=== PATIENT | female | born 1955 | race Caucasian/White ===

== ENCOUNTER → 2020-07-17 10:58 | Outpatient (CLI) | payer OTHER, SELFPAY ==
--- NOTE | ~2020-07-17 | DEXA_ITS ---
Bone Density Report Name: Kirsten Chong Age: 65 Sex: Female Ethnicity: White Date of : 1955 Indication: postmenopausal; screening for osteoporosis; Referring Provider: Mare Lindsay Study: Bone densitometry was performed. Exam Date: July 17, 2020 Accession number: [id number] Bone Density: Region BMD T-score Z-score Classification AP Spine (L1-L4) 0.960 -0.8 1.0 Normal Femoral Neck (Left) 0.646 -1.8 -0.3 Osteopenia Total Hip (Left) 1.019 0.6 1.9 Normal Femoral Neck (Right) 0.626 -2.0 -0.5 Osteopenia Total Hip (Right) 0.949 0.1 1.3 Normal Total Hip Mean 0.984 0.4 1.6 Normal World Health Organization criteria for BMD impression classify patients as: Normal (T-score at or above -1.0), Osteopenia (T-score between -1.0 and -2.5), or Osteoporosis (T-score at or below -2.5). 10-year Fracture Risk(1): Major Osteoporotic Fracture 10% Hip Fracture 1.5% Reported Risk Factors: [place] (), Neck BMD=0.626, BMI=27.5 (1) FRAX(R) Version 3.08. Fracture probability calculated for an untreated patient. Fracture probability may be lower if the patient has received treatment. Previous Exams: Region Exam Age BMD T-score BMD Change BMD Change Date g/cm2 vs Baseline vs Previous AP Spine(L1-L4) 07/17/2020 65 0.960 -0.8 0.017 -0.029 05/09/2018 63 0.989 -0.5 0.046* -0.021 11/04/2014 59 1.010 -0.3 0.067* 0.020 07/11/2012 57 0.991 -0.5 0.047* 0.103* 04/27/2010 55 0.888 -1.4 -0.055* -0.049* 01/19/2008 52 0.936 -1.0 -0.007 -0.007 01/06/2006 50 0.943 -0.9 Total Hip(Left) 07/17/2020 65 1.019 0.6 0.059 -0.020 05/09/2018 63 1.039 0.8 0.079* 0.034* 11/04/2014 59 1.005 0.5 0.045* 0.104* 07/11/2012 57 0.901 -0.3 -0.059* -0.005 04/27/2010 55 0.906 -0.3 -0.054* -0.002 01/19/2008 52 0.908 -0.3 -0.052* -0.052* 01/06/2006 50 0.960 0.1 Total Hip(Right) 07/17/2020 65 0.949 0.1 0.049 0.021 05/09/2018 63 0.928 -0.1 0.029* 0.005 11/04/2014 59 0.923 -0.2 0.024 0.064* 07/11/2012 57 0.859 -0.7 -0.040* -0.025 04/27/2010 55 0.884 -0.5 -0.015 -0.008 01/19/2008 52 0.892 -0.4 -0.008 -0.008 01/06/2006 50 0.899 -0.3 *Denotes significance at 95% confidence le
--- NOTE | ~2020-07-17 | MM_ITS ---
EXAMINATION: MM screening juanjo BI w yazmin HISTORY: Screening TECHNIQUE: Craniocaudal and mediolateral oblique 3-D tomosynthesis images were obtained and synthetic 2-D images were generated. CAD analysis was submitted and interpreted. COMPARISON: No prior mammogram is available for comparison at this institution. BREAST PARENCHYMAL COMPOSITION: There are scattered areas of fibroglandular density. FINDINGS: There are asymmetries scattered throughout the right breast with possible architectural dis tortion. No mammographic evidence for malignancy in the left breast. IMPRESSION: 1. Multiple focal asymmetries of the right breast. 2. Additional mammographic views and possible breast ultrasound are recommended. BI-RADS Category 0: Incomplete: Needs additional imaging evaluation. Reviewed, dictated and finalized at location A. RER STORES IMPRESSION: 1. Multiple focal asymmetries of the right breast. 2. Additional mammographic views and possible breast ultrasound are recommended . BI-RADS Category 0: Incomplete: Needs additional imaging evaluation.
== END ==
PROVIDERS: Visit Provider Student in an Organized Health Care Education/Training Program
DX: Z12.31 Encounter for screening mammogram for malignant neoplasm of breast (principal); Z78.0 Asymptomatic menopausal state; R92.8 Other abnormal and inconclusive findings on diagnostic imaging of breast; M85.852 Other specified disorders of bone density and structure, left thigh; M85.851 Other specified disorders of bone density and structure, right thigh
CPT/HCPCS: 77063; 77067; 77080

== ENCOUNTER → 2020-08-06 08:10 | Outpatient (CLI) | payer OTHER, SELFPAY ==
--- NOTE | ~2020-08-06 | MMUS_ITS ---
EXAMINATION: MM diagnostic mammo unilat RT, US breast RT limited HISTORY: Focal asymmetry of the right breast on screening mammogram TECHNIQUE: Additional 3-D tomosynthesis images of the right breast were performed and synthetic 2-D i mages were generated. CAD analysis was submitted and interpreted. High resolution limited right breas t ultrasound was performed. COMPARISON: 07/17/2020, 05/11/2018, 05/09/2018, 12/25/2015, 11/24/2014 FINDINGS: MAMMOGRAPHIC FINDINGS: There is a return to baseline appearance with spot compression in the areas questioned on screening m ammogram. No suspicious mass, calcification, or architectural distortion are identified. ULTRASOUND: There is a 4 mm x 3 mm oval, circumscribed, parallel, hypoechoic mass with no posterior features or i nternal vascularity at the 9:00 location 7.5 cm from the nipple. IMPRESSION: 1. Probably benign right breast mass. 2. Recommend 6 month follow-up right diagnostic mammogram and ultrasound. BI-RADS category 3, probably benign findings. Reviewed, dictated and finalized at location A. SCIENCE TECHNICAL OFFICER IMPRESSION: 1. Probably benign right breast mass. 2. Recommend 6 month follow-up right diagnostic mammogram and ultrasound. BI-RADS category 3, probably benign findings.
== END ==
PROVIDERS: Visit Provider Student in an Organized Health Care Education/Training Program
DX: N63.15 Unspecified lump in the right breast, overlapping quadrants (principal)
CPT/HCPCS: 76642; 77065

== ENCOUNTER → 2020-08-07 11:18 | Outpatient (CLI) | payer OTHER, SELFPAY ==
[2020-08-07 21:06] LABS: SARS-CoV-2 RNA PCR Negative
== END ==
PROVIDERS: Visit Provider Family Medicine Adolescent Medicine
DX: R09.81 Nasal congestion (principal); R05 Cough; Z20.822 Contact with and (suspected) exposure to COVID-19
CPT/HCPCS: C9803; U0003; U0005

== ENCOUNTER → 2021-02-03 09:31 | Outpatient (CLI) | payer OTHER, SELFPAY ==
--- NOTE | ~2021-02-03 | MMUS_ITS ---
EXAMINATION: MM diagnostic juanjo RT w yazmin, US breast RT limited HISTORY: Follow-up probable benign right breast mass TECHNIQUE: Additional 3-D tomosynthesis images of the right breast were performed and synthetic 2-D i mages were generated. CAD analysis was submitted and interpreted. High resolution Limited right breas t ultrasound was performed. COMPARISON: Comparison to multiple prior studies sequentially, with oldest reviewed study dated 10/2014. BREAST PARENCHYMAL COMPOSITION: Breast composed of scattered areas of fibroglandular density. FINDINGS: MAMMOGRAPHIC FINDINGS: There are no suspicious masses, calcifications or architectural distortion in the right breast to sug gest malignancy. ULTRASOUND: Limited right breast ultrasound: Normal heterogeneous echotexture without focal solid or cystic mass. IMPRESSION: 1. No evidence for malignancy in the right breast. 2. Routine yearly screening mammogram and regular clinical breast examination are recommended. BI-RADS Category 2: Benign finding(s). Reviewed, dictated and finalized at location A. IMPRESSION: 1. No evidence for malignancy in the right breast. 2. Routine yearly screening mammogram and regular clinical breast examination a re recommended. BI-RADS Category 2: Benign finding(s).
== END ==
PROVIDERS: PCP Family Medicine Adolescent Medicine; Visit Provider Student in an Organized Health Care Education/Training Program
DX: N63.15 Unspecified lump in the right breast, overlapping quadrants (principal); R92.8 Other abnormal and inconclusive findings on diagnostic imaging of breast
CPT/HCPCS: 76642; 77061; 77065; G0279

== ENCOUNTER 2021-09-03 13:24 | Outpatient (CLI) | payer OTHER, SELFPAY ==
--- NOTE | ~2021-09-03 | CT_ITS ---
. EXAMINATION: CT IAC/mastoids BI wo con DATE: 09/03/2021 13:45 INDICATION: Otalgia, right ear. TECHNIQUE: Computed tomography (CT) of the temporal bones was performed without intravenous contrast. Automated exposure control and iterative reconstruction technique were employed. The dose-length pro duct was 181.90 mGy-cm. COMPARISON: Temporal bone CT 09/11/2021 FINDINGS: RIGHT TEMPORAL BONE: The internal auditory canal, cochlea, vestibule, vestibular aqueduct, semicircular canals, carotid ca nal, jugular bulb, and facial nerve course are normal. The ossicles are dislocated and deformed, whic h is chronic. There is a chronic small volume of soft tissue surrounding incus. There are changes of mastoidectomy. There is chronic thickening of right tympanic membrane. LEFT TEMPORAL BONE: The internal auditory canals, cochlea, vestibule, semicircular canals, vestibular aqueduct, carotid c anal, jugular bulb, facial nerve course, ossicles, tympanic membrane, Prussak space, scutum, external auditory canal, and mastoid air cells are normal. IMPRESSION: 1. Chronic dislocated and deformed right-sided ossicles with chronic small volume of tissue surroundi ng incus, likely granulation tissue. Changes of right mastoidectomy. 2. Normal left temporal bone. Reviewed, dictated and finalized at location A. ER GILL NET IMPRESSION: 1. Chronic dislocated and deformed right-sided ossicles with chronic small volu me of tissue surrounding incus, likely granulation tissue. Changes of right mas toidectomy. 2. Normal left temporal bone.
== END 2021-09-03 13:25 | disposition home or self-care (01) ==
LOC: ANHIMG 13:28
PROVIDERS: PCP Family Medicine Adolescent Medicine; Visit Provider Otolaryngology
DX: H92.01 Otalgia, right ear (principal)
CPT/HCPCS: 70480

== ENCOUNTER 2021-12-12 18:27 | Emergency (ER) | payer OTHER, SELFPAY ==
[2021-12-12 18:30] VITALS: BP 173/94; PULSE 114; RESP 23; TEMP 38.4; O2SAT 96
--- NOTE | 2021-12-12 18:31 | ED.URI ---
HPI - URI/Sore Throat General Chief Complaint: Upper Respiratory Infection Stated Complaint: Congestion Time Seen by Provider: 12/12/21 18:34 Source: patient, RN notes reviewed and old records reviewed Mode of arrival: ambulatory Limitations: no limitations History of Present Illness HPI Narrative: 66-year-old female presents to the [facility] with complaints of a cough. Primary doctor called her in [facility] and [facility] on December 09, 3 days prior to arrival. Patient states that she is not feeling any better. MD elicited complaint: cough Onset (ago): day(s) () Related Data Home Medications Medication Instructions Recorded Confirmed triamterene 37.5 1 cap PO DAILY 10/23/19 12/12/21 mg-hydrochlorothiazide 25 mg capsule cetirizine 10 mg tablet (Zyrtec) 10 mg PO DAILY 08/03/21 12/12/21 Allergies Allergy/AdvReac Type Severity Reaction Status Date / Time amoxicillin AdvReac Severe Diarrhea Verified 12/12/21 18:32 TAPE Allergy Mild REDDNESS Uncoded 12/12/21 18:32 Review of Systems Review of Systems: All systems reviewed & are unremarkable except as noted in HPI and below Constitutional: Constitutional: Reports no additional constitutional complaints, Denies chills and Denies fever(s) Eyes: Eyes: Reports no additional eye complaints ENT: Reports system reviewed and no additional complaints, except as documented Cardiovascular: Cardiovascular: Reports no additional cardiovascular complaints Respiratory: Respiratory: Reports as per HPI, Reports cough and Reports wheezing Gastrointestinal: Gastrointestinal: Reports no additional gastrointestinal complaints Musculoskeletal: Musculoskeletal: Reports no additional musculoskeletal complaints Integumentary/Breasts: Skin/Breast: Reports system reviewed and no additional complaints, except as docu Neurologic: Reports system reviewed and no additional complaints, except as documented Psychiatric: Psychiatric: Reports no additional psychiatric complaints Allergic/Immunologic: Allergic/Immunologic: Reports no additional allergic/immunologic complaints [facility] Past Medical History Medical History (Updated 12/12/21 @ 19:58 by Francy Isidro APRN) Acid reflux MARIE positive Irritable bowel syndrome without diarrhea Mastoid pain Meniere disease Surgical History Surgical History H/O sinus surgery History of ear surgery Previous section Family History Family History Father Family history of lung cancer Mother No problems noted. Grandparent Diabetes mellitus Other Colon polyp Family history of allergic disorder Social History Social History Smoking status: Never smoker Second hand tobacco smoke exposure: No Alcohol intake: never Substance use: never Substance use type: does not use Gender identity (if verbalized by the patient): Female Sexual Orientation (if Verbalized by the Patient): Straight or Heterosexual Spiritual care concerns: No Agree to blood products: Yes Comments At the time of my signature, I reviewed and agree with the nursing past medical, surgical, social, and family history. There is no relevant family history pertinent to the patient complaint. Exam Const: General: healthy appearing, no acute distress and alert Nutritional Appearance: well nourished Orientation/consciousness: patient oriented x3 Limitations: no limitations HENMT: Head: normal to inspection Ears: external ears normal General nose exam: Normal external nose present Eyes: General: appearance normal, both eyes and all related structures Pupils: Equal, round and reactive pupils present Neck: Neck: normal visual inspection, no lymphadenopathy and no meningeal signs Chest: Chest palpation & inspection: normal inspection of the chest Resp: Effort & Inspect
[2021-12-12 18:40] VITALS: PULSE 114; RESP 23; O2SAT 96
[2021-12-12] MEDS: ALBUTEROL SULFATE NEB 2.5 MG/3 ML INH INHALATION (18:49)
[2021-12-12] MEDS: predniSONE 20 MG TABLET PO (18:49)
[2021-12-12] MEDS: IPRATROPIUM BR 0.02% INH SOLN 0.5 MG/2.5 ML VIAL INHALATION (18:49)
[2021-12-12 19:02] VITALS: PULSE 116; RESP 23; O2SAT 98
== END 2021-12-12 19:20 | disposition home or self-care (01) ==
PROVIDERS: Emergency Provider Nurse Practitioner; PCP Family Medicine Adolescent Medicine
DX: J06.9 Acute upper respiratory infection, unspecified (principal); Z20.822 Contact with and (suspected) exposure to COVID-19; K21.9 Gastro-esophageal reflux disease without esophagitis
CPT/HCPCS: 87426; 87804; 94640; 99213; C9803; G0463; J7512

== ENCOUNTER 2021-12-14 09:52 | Outpatient (CLI) | payer OTHER, SELFPAY ==
--- NOTE | ~2021-12-14 | XR_ITS ---
XR chest 2V DATE: 12/14/2021 10:10 INDICATION: Cough TECHNIQUE: PA and lateral views COMPARISON: 03/11/2015 PA chest FINDINGS: There is mild bibasilar atelectasis. The lungs are otherwise clear. Normal heart size. No h ilar or mediastinal enlargement. IMPRESSION: Bibasilar atelectasis Reviewed, dictated and finalized at location A. IMPRESSION: Bibasilar atelectasis
== END 2021-12-14 09:53 | disposition home or self-care (01) ==
LOC: ANHIMG 09:57
PROVIDERS: PCP Family Medicine Adolescent Medicine; Visit Provider Family Medicine Adolescent Medicine
DX: R05.9 Cough, unspecified (principal); J98.11 Atelectasis
CPT/HCPCS: 71046

== ENCOUNTER → 2022-07-22 13:14 | Outpatient (CLI) | payer OTHER, SELFPAY ==
--- NOTE | ~2022-07-22 | XR_ITS ---
XR lumbar spine 2-3V DATE: 07/22/2022 13:35 INDICATION: Low back pain TECHNIQUE: AP, lateral, coned lateral lumbosacral views COMPARISON: None FINDINGS: There is grade 1 anterolisthesis at L4-5, likely a result of prominent degenerative change noted at the apophyseal joints of the lower lumbar and lumbosacral area. Osteopenia. Normal alignment of the lumbar spine is noted otherwise. No fracture or bone destruction is detected. Included lower thoracic and lumbar pedicles are intact. Mild degenerative disc disease at L2-3. Lumbar and lumbosacral interspaces otherwise are well preserv ed. The sacroiliac joints are intact. IMPRESSION: Degenerative changes apophyseal joints, with associated grade 1 anterolisthesis at L4-5 Mild degenerative disc disease at L2-3 Reviewed, dictated and finalized at location L. INTERVENTIONIST IMPRESSION: Degenerative changes apophyseal joints, with associated grade 1 ant erolisthesis at L4-5 Mild degenerative disc disease at L2-3
== END ==
PROVIDERS: PCP Family Medicine Adolescent Medicine; Visit Provider Family Medicine Adolescent Medicine
DX: M54.50 Low back pain, unspecified (principal); M51.36 Other intervertebral disc degeneration, lumbar region
CPT/HCPCS: 72100

== ENCOUNTER → 2022-08-05 13:08 | Outpatient (CLI) | payer OTHER, SELFPAY ==
--- NOTE | ~2022-08-05 | MM_ITS ---
EXAMINATION: MM screening juanjo BI w yazmin HISTORY: Screening TECHNIQUE: Craniocaudal and mediolateral oblique 3-D tomosynthesis images were obtained and synthetic 2-D images were generated. CAD analysis was submitted and interpreted. COMPARISON: Comparison to multiple prior studies sequentially, with oldest reviewed study dated 12/24. BREAST PARENCHYMAL COMPOSITION: Breast composed of scattered areas of fibroglandular density FINDINGS: There is no evidence of suspicious mass, calcification, or architectural distortion to sugg est malignancy in either breast. There has been no suspicious interval change. IMPRESSION: 1. No mammographic evidence of malignancy. 2. Recommend routine screening mammography in one year. BI-RADS Category 1: Negative Reviewed, dictated and finalized at location A. SYSTEM ADMINISTRATOR
== END ==
PROVIDERS: PCP Family Medicine Adolescent Medicine; Visit Provider Student in an Organized Health Care Education/Training Program
DX: Z12.31 Encounter for screening mammogram for malignant neoplasm of breast (principal)
CPT/HCPCS: 77063; 77067

== ENCOUNTER → 2022-09-21 10:25 | Outpatient (CLI) | payer OTHER, SELFPAY ==
--- NOTE | ~2022-09-21 | DEXA_ITS ---
Bone Density Report Name: KYLE MACARIO Age: 67 Sex: Female Ethnicity: White Date of : 1955 Indication: postmenopausal; screening for osteoporosis; Referring Provider: ALICIA MARTÍNEZ Study: Bone densitometry was performed. Exam Date: September 21, 2022 Accession number: [id number] Bone Density: Region BMD T-score Z-score Classification AP Spine (L1-L4) 0.969 -0.7 1.2 Normal Femoral Neck (Left) 0.682 -1.5 0.1 Osteopenia Total Hip (Left) 0.957 0.1 1.5 Normal Femoral Neck (Right) 0.623 -2.0 -0.4 Osteopenia Total Hip (Right) 0.911 -0.3 1.1 Normal Total Hip Mean 0.934 -0.1 1.3 Normal World Health Organization criteria for BMD impression classify patients as: Normal (T-score at or above -1.0), Osteopenia (T-score between -1.0 and -2.5), or Osteoporosis (T-score at or below -2.5). 10-year Fracture Risk(1): Major Osteoporotic Fracture 11% Hip Fracture 1.9% Reported Risk Factors: [place] (), Neck BMD=0.623, BMI=28.6 (1) FRAX(R) Version 3.08. Fracture probability calculated for an untreated patient. Fracture probability may be lower if the patient has received treatment. Previous Exams: Region Exam Age BMD T-score BMD Change BMD Change Date g/cm2 vs Baseline vs Previous AP Spine(L1-L4) 09/21/2022 67 0.969 -0.7 0.025* 0.008 07/17/2020 65 0.960 -0.8 0.017 -0.029 05/09/2018 63 0.989 -0.5 0.046* -0.021 11/04/2014 59 1.010 -0.3 0.067* 0.020 07/11/2012 57 0.991 -0.5 0.047* 0.103* 04/27/2010 55 0.888 -1.4 -0.055* -0.049* 01/19/2008 52 0.936 -1.0 -0.007 -0.007 01/06/2006 50 0.943 -0.9 Total Hip(Left) 09/21/2022 67 0.957 0.1 -0.003 -0.062 07/17/2020 65 1.019 0.6 0.059 -0.020 05/09/2018 63 1.039 0.8 0.079* 0.034* 11/04/2014 59 1.005 0.5 0.045* 0.104* 07/11/2012 57 0.901 -0.3 -0.059* -0.005 04/27/2010 55 0.906 -0.3 -0.054* -0.002 01/19/2008 52 0.908 -0.3 -0.052* -0.052* 01/06/2006 50 0.960 0.1 Total Hip(Right) 09/21/2022 67 0.911 -0.3 0.012 -0.038 07/17/2020 65 0.949 0.1 0.049 0.021 05/09/2018 63 0.928 -0.1 0.029* 0.005 11/04/2014 59 0.923 -0.2 0.024 0.064* 07/11/2012 57 0.859 -0.7 -0.040* -0.025 04/27/2010 55 0.884 -0.5 -0.015 -0.008 01/19/2008 52 0.892 -0.4 -
== END ==
PROVIDERS: PCP Family Medicine Adolescent Medicine; Visit Provider Obstetrics & Gynecology
DX: Z78.0 Asymptomatic menopausal state (principal); M85.852 Other specified disorders of bone density and structure, left thigh; M85.851 Other specified disorders of bone density and structure, right thigh
CPT/HCPCS: 77080

== ENCOUNTER 2024-09-06 18:50 | Emergency (ER) | payer OTHER, SELFPAY ==
[2024-09-06 19:03] VITALS: BP 153/90; PULSE 100; RESP 20; TEMP 36.5; O2SAT 100
[2024-09-06 19:06] VITALS: PULSE 100; RESP 20; O2SAT 100
--- NOTE | 2024-09-06 19:07 | ED.URI ---
HPI - URI/Sore Throat General Chief Complaint: Upper Respiratory Infection Stated Complaint: cough, do not feel good flu exp Time Seen by Provider: 09/06/24 19:08 Source: patient, RN notes reviewed and old records reviewed Mode of arrival: ambulatory Limitations: no limitations History of Present Illness HPI Narrative: 69 year old female who presents to [facility] care with complaints of 2 weeks history of sneezing, since congestion stuffiness and drainage and for the past few days she has been noting a cough. Patient reports that her grand daughter have both recently had the flu and she has been exposed. Patient reports that she has been taking Ibuprofen, using prescription nasal spray and also taking some Sudafed for her symptoms. MD elicited complaint: cough, rhinorrhea, nasal congestion and other (sneezing ) Pertinent past history: other (sinus problems, menieres disease) Able to tolerate fluids by mouth: Yes Treatments prior to arrival: ibuprofen and other (nasal spray,Sudafed) Related Data Home Medications ?Medication ?Instructions ?Recorded ?Confirmed ?Last Taken ?Type triamterene 37.5 cap 09/06/24 Unknown History mg-hydrochlorothiazide 25 mg capsule Allergies Allergy/AdvReac Type Severity Reaction Status Date / Time amoxicillin AdvReac Severe Diarrhea Verified 09/06/24 19:05 cefprozil AdvReac Intermediate Vomiting Verified 09/06/24 19:05 clarithromycin (From Biaxin) AdvReac Unknown Unknown Verified 09/06/24 19:05 clavulanic acid (From AdvReac Unknown nausea Verified 09/06/24 19:05 Augmentin) lansoprazole (From Prevacid) AdvReac Unknown Unknown Verified 09/06/24 19:05 sulfamethoxazole (From AdvReac Unknown Unknown Verified 09/06/24 19:05 Septra) trimethoprim (From Septra) AdvReac Unknown Unknown Verified 09/06/24 19:05 TAPE Allergy Mild REDDNESS Uncoded 09/06/24 19:05 Review of Systems Review of Systems: CONSTITUTIONAL: Reports malaise, no chills, sweats, or fever. EYES: Denies visual changes, redness, or discharge. ENT: Reports rhinorrhea, congestion, sinus pain, no otalgia and no sore throat. CARDIOVASCULAR: Denies chest pain, palpitations, or edema. RESPIRATORY: Reports cough.? Denies dyspnea. GASTROINTESTINAL: Denies abdominal pain, nausea, vomiting, diarrhea SKIN: Denies rash or itching. MUSCULOSKELETAL: Denies myalgia. NEUROLOGIC: Denies headache. All systems reviewed & are unremarkable except as noted in HPI and below PMFSH Past Medical History Medical History (Updated 09/06/24 @ 19:24 by Diana Diego NP) Meniere disease Irritable bowel syndrome without diarrhea MARIE positive Acid reflux Mastoid pain Surgical History Surgical History History of ear surgery Previous section H/O sinus surgery Family History Family History Father Family history of lung cancer Mother No problems noted. Grandparent Diabetes mellitus Other Colon polyp Family history of allergic disorder Social History Social History Smoking status: Never smoker Second hand tobacco smoke exposure: No Alcohol intake: never Substance use: never Substance use type: does not use Do You Feel Safe in your Home?: Yes Living arrangements: with family Occupation/Education: retired Gender identity (if verbalized by the patient): Female Sexual Orientation (if Verbalized by the Patient): Straight or Heterosexual Spiritual care concerns: No Agree to blood products: Yes Comments At time of signature, agree with nursing past medical, surgical, social and family history. There is no relevant family history pertinent to the presenting complaint Exam Narrative: GENERAL: Well-appearing, well-nourished, and in no acute distress. HEAD: Normocephalic EYES: PERRLA, conjunctivae clear ENT: Nares clear, turbinates edematous and erythematous, clear discharge sneezing sinus pressure. Mucous membranes moist. TM pearly astudillo with dull light reflex bilaterally; no tragal tenderness, some wax to bilateral ears. Oropharynx erythematous without lesions. Tonsils not enlarged and without exudate, no drooling, no hoarseness, no trismus, uvula midline.PND NECK: Supple. No lymphadenopathy CHEST: Clear to auscultation, breath sounds equal. No wheezing, rhonchi, rales, or stridor. No respiratory distress, speaks in full sentences. cough noted with some expectoration of mucous SAO2 100% on room air HEART: Regular rate and rhythm. No murmur heard. SKIN: Warm, dry, no rash. NEURO: Alert and oriented x3. PSYCH: Normal mood and affect Course Course Emergency Course: Patient is aware of diagnosis, understands and agrees to treatment plan.? Anticipatory guidance given.? Patient agrees to follow-up as directed and is aware of reasons to seek care at the emergency department. Portions of this record may have been created with voice recognition software Level of Care: Express Care Visit Vital Signs Vital signs: Vital Signs Temperature 36.5 C 09/06/24 19:03 Pulse Rate 100 09/06/24 19:03 Respiratory Rate 20 09/06/24 19:03 Blood Pressure 153/90 H 09/06/24 19:03 Pulse Oximetry 100 09/06/24 19:03 Oxygen Delivery Room Air 09/06/24 19:03 Temperature 36.5 C 09/06/24 19:03 Pulse Rate 100 09/06/24 19:06 Respiratory Rate 20 09/06/24 19:06 Blood Pressure 153/90 H 09/06/24 19:03 Pulse Oximetry 100 09/06/24 19:06 Oxygen Delivery Room Air 09/06/24 19:03 Reviewed MDM - URI/Sore Throat MDM Narrative Medical decision making narrative: Differential diagnosis considered: Naylor virus, strep pharyngitis, allergic rhinitis, upper respiratory tract infection, sinusitis, rhinosinusitis, nasopharyngitis. viral pharyngitis, otitis media, otitis externa, pneumonia, bronchitis, viral cough syndrome, viral syndrome, and influenza.? Exam findings show no acute concerns or changes; patient is non-toxic appearing and is in no distress.? Patient is appropriate for outpatient treatment and follow-up. Differential Diagnosis Differential diagnosis: Likely upper respiratory infection, sinusitis, influenza and other (COVID, cough) Medical Records Attestation: I reviewed the patient's medical records. Lab Data Attestation: I reviewed the patient's lab results. Lab results narrative: Influenza A negative, Influenza B negative, COVID antigen negative Critical Care Time Critical Care Time Critical Care Time: No Discharge Plan Discharge Clinical Impression: Sinusitis Qualifiers: Sinusitis location: pansinusitis Chronicity: acute Recurrence: not specified as recurrent Qualified Code(s): J01.40 - Acute pansinusitis, unspecified Patient Disposition: Home, Self-Care Condition: Stable Instructions: Antibiotic Form, Sinusitis (ED) Additional Instructions: Increase fluids especially juices and water Gizh-rex-ankevcw cough and cold medicine of your choice for your symptoms Zyrtec Claritin or Yeni daily include Coricidin brand decongestant Use nasal saline prior to using your nasal spray, may use nasal saline as needed. Steroids as directed--take with food heat to the face 20-30 minutes 4-6 times a day for pain Salt water gargles, throat lozenges or throat sprays as desired Antibiotic as directed--finished the medication If your symptoms persist, change or worsen significantly before you can contact your personal physician then please, without delay, go to the emergency department for further evaluation. Follow-up with PCP in 7-10 days or sooner if needed Follow up with PCP soon in regards to your blood pressure which is elevated above threshold for referral. Blood pressure above 120/80 may indicate pre-hypertension.153/90 Patient Language: Greenlandic Prescriptions: New azithromycin 250 mg tablet See Rx Instructions .ROUTE .COMPLEX Qty: 6 0RF Rx Instructions: For 250 mg dose pack: take 500 mg today (day 1), then 250 mg for 4 days (days 2-5) methylprednisolone [Medrol (Jackson)] 4 mg tablets,dose pack See Rx Instructions .ROUTE .COMPLEX Qty: 21 0RF Rx Instructions: orally per package directions No Action triamterene-hydrochlorothiazid 37.5-25 mg capsule ipratropium bromide 21 mcg (0.03 %) spray,non-aerosol 2 spray intranasal TID PRN (Reason: allergy symptoms) Qty: 30 0RF Rx Instructions: administer into each nostril pantoprazole 40 mg tablet,delayed release (DR/EC) See Rx Instructions .ROUTE .COMPLEX Qty: 180 1RF Dose Instruction: TAKE 1 TABLET BY MOUTH TWICE A DAY Rx Instructions: TAKE 1 TABLET BY MOUTH TWICE A DAY spironolactone 25 mg tablet 25 mg PO DAILY Qty: 90 0RF Follow-up/Referrals: Rickey Morrissey MD [Primary Care Provider] - Time of Disposition: 19:26 Quality [place] Coma Scale Eyes: Open Verbal: Oriented and Alert Motor: Follows Commands Ke[place] Coma Total Score: 15
[2024-09-06 19:37] LABS: EDCOVIDSCREEN Negative (Negative); EDINFLUASCREEN Negative (Negative); EDINFLUBSCREEN Negative (Negative)
== END 2024-09-06 19:25 | disposition home or self-care (01) ==
PROVIDERS: Emergency Provider Registered Nurse; PCP Family Medicine Adolescent Medicine
DX: J01.40 Acute pansinusitis, unspecified (principal); Z20.822 Contact with and (suspected) exposure to COVID-19; K21.9 Gastro-esophageal reflux disease without esophagitis
CPT/HCPCS: 87426; 87804; 99213; G0463

== ENCOUNTER 2024-11-15 13:53 | Emergency (ER) | payer OTHER, SELFPAY ==
--- NOTE | ~2024-11-15 | CT_ITS ---
CT IAC/mastoids BI w con Ordering provider: Charo Hart PA-C Technique: CT temporal bones was performed by obtaining thin slice axial images. Coronal and sagittal reformatted images were also obtained. No contrast was administered. Radiation reduction technique u tilized. The dose-length product was 249.38 mGy-cm. 100 mL Omnipaque 350 was given IV. Reason for exam: . R mastoid pain, otalgia . Comparison: None. Findings: RIGHT TEMPORAL BONE: Status post right mastoidectomy is noted. The drum is intact. LEFT TEMPORAL BONE: The mastoid air cells are normal and well aerated. The external auditory canal is normal and well aerated. The tympanic membrane as visualized is intact and normal. The middle ear ( including the epitympanum, mesotympanum and hypotympanum) is normal and well aerated. The tegmen tymp ani The scutum is normal. The auditory ossicles are normal. The cochlea, vestibule, vestibular and cochlear aqueduct are normal. The semicircular canals are normal. The facial nerve canal is normal . The internal auditory canal is normal. The carotid canal and jugular foramen are normal. The tem poromandibular joint is normal. Left maxillary sinusitis. Thickening of the wall of the sinuses is seen with postoperative changes in the right maxillary sinus medially. Otherwise, The visualized brain parenchyma, paranasal sinuses, a nd superficial soft tissues are normal for patient's age. IMPRESSION: Postoperative changes in the right mastoid bone. No definite abnormality seen in the right mastoid bone. Left maxillary sinusitis. Reviewed, dictated and finalized at location A.
[2024-11-15 13:58] VITALS: BP 163/88; PULSE 112; RESP 16; TEMP 36.4; O2SAT 99
--- OUTSIDE RECORDS SUMMARY | 2024-11-15 13:58 | XMS_ITS | Continuity of Care Document ---
Author Organization [facility] Address [address] [place] [address] Phone Care Team Providers Care Ginner Helper Name Role Phone Zach Murray Unavailable Unavailable Procedures Procedure Date Eye Exam Established Pt Ophthalmoscopy, Subsequent Office Consultation Ophthalmoscopy Office/outpatient Visit, New Advance Directives Directive Yes / No Effective Date File Name No Information Encounters Encounter Description Practice Location Reason(s) For Visit Diagnoses Date Provider Providers Copied on Encounter [facility], [id number] [place] [address] [address], [place], [place], [id number], [place] tel:[phone] [facility] Ruth No Information [address] [place], [address], [place]. tel:[phone] Referring Provider: Zach Quintanilla, [address] [place], [address]. tel:[phone] Office Consultation [facility], [address] [place] [address] [address], [place], [place], [id number], [place] tel:[phone] [address] [facility] No Information 9 [address] [place], [address], [place]. tel:[phone] Referring Provider: Miguel A lara, [address], [place], [address]. tel:[phone] Office/outpati ent Visit, [facility], [address], [place], [place], [id number], [place] tel:[phone] [facility] No Information 9 Brandon Edmondhil. [address] [facility] [address], [place], [address], [place]. tel:[phone] Family History Family Member Type Diagnosis Age At Onset No Information Payers Payer name Insurance type Covered alliance party ID Authoriza tion(s) No Information Social History Type Description Quantity Date Captured Comments Sex Female Smoking Status No Information Chief Complaint And Reason For Visit No Information Reason For Referral Reason For Referral No Information History Of Present Illness Encounter Date Complaint History Of Prese nt Illness No Information Functional Status Date Functional Assessmen t No Information Instructions Date Instruction Additional Infor mation No Information Assessments Type Assessment Date No Information Patient Care Teams Name Effective Dates (start - stop) Status Members No Information
--- OUTSIDE RECORDS SUMMARY | 2024-11-15 13:58 | XMS_ITS | Patient Health Record ---
Author Organization [facility] Address [address] [place], [place] [id number] Care Team Providers Care Stereotype Finisher Name Role Phone JACINTO QUICK, ALEXANDER Penn Primary Care Provider U Az Alberto Unavailable [phone] Supervisor [employer], Timothy Unavailable Unavailable REASON FOR REFERRAL No Information MEDICATIONS Medication SIG (Take, Route, Frequency, Duration) Notes Start Date End Date Status pantoprazole 40 mg 1 tab(s) orally once a day Active ZyrTEC 10 mg 1 tab(s) orally once a day Active Nasacort as directed once a day Active Triamterene/HCTZ 37.5/25mg 1 tab once a day Active SOCIAL HISTORY Tobacco Use: Social History Observation Description Date Details (start date - stop date) Never Smoker NA - NA Sex Assigned At : Social History Observation Description Sex Assigned At Unknown Tobacco Use: Question Answer Notes Smoking Status nonsmoker PROBLEMS Problem Type ICD Code Onset Dates Problem Status W/U Status Risk SNOMED Code Notes Problem MARIE positive (R76.8) Active confirmed 402199410 Problem Right ear pain (H92.01) Active confirmed [id number] PLAN OF TREATMENT Pending Test Test Name Order Date P-ANCA, C-ANCA 05/30/2018 Insurance Providers Payer Name Payer Address Payer Phone Subscriber Number Group Number Insured Name Patient Relationship to Insured Coverage Start Date Coverage End Date [employer] [place] [address] [address] [place] [address] [id number] ISABEL CASTANEDA Spouse - patient is the spouse of the insured 7 MEDICAL (GENERAL) HISTORY Medical History History ICD Code ear ache loss of hearing Ringing in ears sinus problems Hot Flashes irritable bowel syndrome
[2024-11-15 14:19] VITALS: BP 142/82; PULSE 111; RESP 18; O2SAT 98
--- OUTSIDE RECORDS SUMMARY | 2024-11-15 14:22 | XMS_ITS | Continuity of Care Document ---
Author Organization [facility] Address [address] [place] [address] Phone Care Team Providers Care Broke Beater Machine Operator Name Role Phone Zach Murray Unavailable Unavailable Procedures Procedure Date Eye Exam Established Pt Ophthalmoscopy, Subsequent Office Consultation Ophthalmoscopy Office/outpatient Visit, New Advance Directives Directive Yes / No Effective Date File Name No Information Encounters Encounter Description Practice Location Reason(s) For Visit Diagnoses Date Provider Providers Copied on Encounter [facility], [id number] [place] [address] [address], [place], [place], [id number], [place] tel:[phone] [address] [facility] Ruth No Information 9 Trevor [address]. [address] [place], [address], [place]. tel:[phone] Referring Provider: Zach Quintanilla, [address] [place], [address]. tel:[phone] Office Consultation [facility], [address] [place] [address] [address], [place], [place], [id number], [place] tel:[phone] [facility] No Information 9 Trevor [address] [place], [address], [place]. tel:[phone] Referring Provider: Miguel A lara, [address], [place], [address]. tel:[phone] Office/outpati ent Visit, [facility], [address], [place], [place], [id number], [place] tel:[phone] [facility] No Information 9 Brandon Edmondhil. [address] [facility] [address], [place], [address], [place]. tel:[phone] Family History Family Member Type Diagnosis Age At Onset No Information Payers Payer name Insurance type Covered constitution party ID Authoriza tion(s) No Information Social [...]
--- NOTE | 2024-11-15 14:37 | ECG_ITS ---
Test Date: 2024-11-15 14:59:01 Measurements Intervals [place] Rate: 95 P: 34 NE: 145 QRS: -17 QRSD: 88 T: 25 QT: 369 QTc: 465 Interpretive Statements SINUS RHYTHM LOW QRS VOLTAGE IN PRECORDIAL LEADS [QRS DEFLECTION < 1.0 mV IN CHEST LEADS] PATTERN CONSISTENT WITH PULMONARY DISEASE POSSIBLE RIGHT VENTRICULAR CONDUCTION DELAY [RSR (QR) IN V1/V2] LEFT AXIS DEVIATION ABNORMAL ECG No previous ECG available for comparison Electronically Signed On 11-16-2024 09:46:35 CDT by Joe Hernandez M.D.
--- NOTE | 2024-11-15 14:43 | ED.EAR ---
HPI - Ear Problem General Chief complaint: Ear Stated complaint: R ear infection with resulting Vertigo/Nausea Time Seen by Provider: 11/15/24 14:11 History of Present Illness HPI Narrative: 69-year-old female with reported history of right sided mastoiditis and mastoidectomy 45 years ago presents to the emergency department with concerns for mastoiditis. Patient states she has been having right ear pain and fullness that radiates posteriorly for the past 10 days. Her PCP, Dr. Harper, started her on Levaquin 6 days ago which she has been taking without improvement. She states the pain has continued to worsen. She notes a prior history of mastoidectomy about 45 years ago on the right side and prior right-sided maxillary sinus surgery. She denies drainage from the ear. Is reporting associated vertigo and “spasms” overlying her right mastoid. She also notes drainage out of the right naris and pain to the right maxillary sinus. Patient also reports chronic intermittent tinnitus from known Meniere's disease. Denies fever, chest pain or shortness of breath. Patient is not currently established with an ENT. Related Data Allergies Allergy/AdvReac Type Severity Reaction Status Date / Time amoxicillin AdvReac Severe Diarrhea Verified 09/28/24 08:54 cefprozil AdvReac Intermediate Vomiting Verified 09/28/24 08:54 clarithromycin (From Biaxin) AdvReac Unknown Unknown Verified 09/28/24 08:54 clavulanic acid (From AdvReac Unknown nausea Verified 09/28/24 08:54 Augmentin) lansoprazole (From Prevacid) AdvReac Unknown Unknown Verified 09/28/24 08:54 sulfamethoxazole (From AdvReac Unknown Unknown Verified 09/28/24 08:54 Septra) trimethoprim (From Septra) AdvReac Unknown Unknown Verified 09/28/24 08:54 TAPE Allergy Mild REDDNESS Uncoded 09/28/24 08:54 Review of Systems Review of Systems: All systems reviewed & are unremarkable except as noted in HPI and below PMFSH Past Medical History Medical History Meniere disease Irritable bowel syndrome without diarrhea MARIE positive Acid reflux Mastoid pain Surgical History Surgical History History of ear surgery Previous section H/O sinus surgery Family History Family History Father Family history of lung cancer Mother No problems noted. Grandparent Diabetes mellitus Other Colon polyp Family history of allergic disorder Social History Social History Smoking status: Never smoker Second hand tobacco smoke exposure: No Alcohol intake: never Substance use: never Substance use type: does not use Do You Feel Safe in your Home?: Yes Living arrangements: with family Occupation/Education: retired Gender identity (if verbalized by the patient): Female Sexual Orientation (if Verbalized by the Patient): Straight or Heterosexual Spiritual care concerns: No Agree to blood products: Yes Exam Narrative: GENERAL: Well-appearing, well-nourished, and in no acute distress. HEAD: Normocephalic, atraumatic. EYES: PERRLA and EOMI. ENT: Nares clear, no rhinorrhea or epistaxis. Mucous membranes moist. Bilateral canals with cerumen, unable to visualize TMs. No drainage. Normal canals. No pain with movement of auricles. Mild tenderness of the right mastoid with no overlying erythema, fluctuance, warmth. Mild tenderness over the right maxillary sinus. Posterior pharynx erythema or edema, no tonsillar hypertrophy or exudates. NECK: Supple. No nuchal rigidity CHEST: Clear to auscultation. No respiratory distress. HEART: Regular rate and rhythm. No murmur heard. Normal peripheral pulses. ABDOMEN: Soft, nontender, nondistended, normal active bowel sounds. EXTREMITIES: Normal range of motion. No edema. SKIN: Warm, dry, no rash. NEURO: No focal deficits. Alert and oriented x4. Cranial nerves 2-12 intact. Strength 5/5 in BUE and BLE. Sensation intact throughout. Normal [id number]. No pronator drift. Course Vital Signs Vital signs: Vital Signs Temperature 97.6 F 11/15/24 13:58 Pulse Rate 112 H 11/15/24 13:58 Respiratory Rate 16 11/15/24 13:58 Blood Pressure 163/88 H 11/15/24 13:58 Pulse Oximetry 99 11/15/24 13:58 Oxygen Delivery Room Air 11/15/24 13:58 Temperature 97.6 F 11/15/24 13:58 Pulse Rate 111 H 11/15/24 14:19 Respiratory Rate 18 11/15/24 14:19 Blood Pressure 142/82 H 11/15/24 14:19 Pulse Oximetry 98 11/15/24 14:19 Oxygen Delivery Room Air 11/15/24 13:58 Medical Decision Making MDM Narrative Medical decision making narrative: 69-year-old female with history of prior right mastoiditis and s/p mastoidectomy, s/p right maxillary sinus surgery, Meniere's disease presents to the emergency department for right ear pain and pressure for about 2 weeks with associated vertigo and ear fullness. See HPI for further history. Triage vitals with tachycardia 112 and elevated blood pressure 163/88, otherwise unremarkable. Patient is afebrile and nontoxic appearing. Exam is significant for the above. Given difficulty evaluating the inner ear due to cerumen, will obtain CT mastoids with labs. Will also obtain EKG for reported vertigo. Labs with leukocytosis of 11.6. Chemistries remarkable for mild hypokalemia of 3 which is been orally repleted. Magnesium within normal limits. AST and ALT are elevated at 53 and 44 respectively, patient does have a history of this, no abdominal pain. Viral swabs are negative. EKG shows normal sinus rhythm with a rate of 95 ppm, normal [place] interval, normal QRS duration, normal QTC, Q-waves in lead 3 which is unchanged from prior, no ST elevations or depressions. CT mastoid IMPRESSION: Postoperative changes in the right mastoid bone. No definite abnormality seen in the right mastoid bone. Left maxillary sinusitis. Patient updated on results. She received IV fluids, Toradol, meclizine and Zofran with improvement. States dizziness has resolved. ENT, Dr. Jin, consulted and evaluated the patient at bedside. He plans to f/u with the patient this week for further evaluation and management. Presentation may be consistent with known Meniere's disease versus other source of your pain/fullness which is TMJ disorder, MSK etiology, other. Will have the patient complete course of levoquin, will also add Flonase and Claritin to regimen. Patient has meclizine at home which I advised her to take p.r.n.. I also advised close follow-up with PCP to have her potassium redrawn in the next 48 hours. Discussed strict ED return precautions. She is agreeable with the plan verbalized understanding. Discharged in stable condition Vital Signs Vital Signs: Vital Signs Temperature 97.6 F 11/15/24 13:58 Pulse Rate 112 H 11/15/24 13:58 Respiratory Rate 16 11/15/24 13:58 Blood Pressure 163/88 H 11/15/24 13:58 Pulse Oximetry 99 11/15/24 13:58 Oxygen Delivery Room Air 11/15/24 13:58 Temperature 97.6 F 11/15/24 13:58 Pulse Rate 111 H 11/15/24 14:19 Respiratory Rate 18 11/15/24 14:19 Blood Pressure 142/82 H 11/15/24 14:19 Pulse Oximetry 98 11/15/24 14:19 Oxygen Delivery Room Air 11/15/24 13:58 Lab Data 11/15/24 14:47 11/15/24 14:47 Labs: Lab Results 11/15/24 11/15/24 Range/Units 14:46 14:47 WBC 11.6 H (4.5-10.0) K/mm3 RBC 4.45 (4.2-5.4) M/mm3 Hgb 13.3 (12.0-15.0) g/dL Hct 40.5 (37.0-47.0) % MCV 91.0 (80-100) fl MCH 29.9 (26-34) pg MCHC 32.8 (32-36) g/dl RDW 14.0 (11.5-14.5) % Plt Count 355 (150-375) k/mm3 MPV 9.9 (7.4-10.4) fl Immature Gran % (Auto) 0.2 (0-0.5) % Neut % (Auto) 50.7 (45.5-73.1) % Lymph % (Auto) 40.1 (18.3-44.2) % [place] % (Auto) 6.8 (2.6-8.5) % Eos % (Auto) 1.6 (0-4.4) % Baso % (Auto) 0.6 (0.2-1.2) % Lymph # (Auto) 4.64 H (0.9-3.2) K/mm3 [place] # (Auto) 0.8 H (0.1-0.6) K/mm3 Eos # (Auto) 0.2 (0-0.3) K/mm3 Baso # (Auto) 0.1 (0.0-0.1) K/mm3 Abs Immat Gran (auto) 0.02 (0.00-0.031) K/mm3 Absolute Neuts (auto) 5.9 (1.3-6.7) K/mm3 Absolute Nucleated RBC 0.000 (0.0-0.012) K/mm3 Nucleated RBC % 0.0 (0.0-0.2) % Sodium 140 (137-145) mmol/L Potassium 3.0 L (3.4-5.0) mmol/L Chloride 100 (98-107) mmol/L Carbon Dioxide 28 (22-30) mmol/L Anion Gap 12 (4-12) mmol/L BUN 22 H (7-17) mg/dL Creatinine 0.87 (0.7-1.0) mg/dL Estim Creat Clear Calc 46 ml/min Estimated GFR > 60 (59 - ) Glucose 149 H (65-110) mg/dL Calcium 9.4 (8.4-10.2) mg/dL Magnesium 1.9 (1.6-2.3) mg/dL Total Bilirubin 0.5 (0.2-1.3) mg/dL AST 53 H (14-36) U/L ALT 44 H (6-35) U/L Alkaline Phosphatase 68 (38-126) U/L Total Protein 8.0 (6.3-8.2) g/dL Albumin 4.6 (3.5-5.1) g/dL Influenza A (RT-PCR) Negative (Negative) Influenza B (RT-PCR) Negative (Negative) SARS-CoV-2 RNA (RT-PCR) Negative (Negative) Discharge Plan Discharge Clinical Impression: Ear pain, right, Vertigo, Hypokalemia Sinusitis Qualifiers: Sinusitis location: frontal Chronicity: acute Recurrence: not specified as recurrent Qualified Code(s): J01.10 - Acute frontal sinusitis, unspecified Patient Disposition: Home Condition: Stable Instructions: Antibiotic Form, Sinusitis (ED), Vertigo (DC), Earache (ED) Additional Instructions: You were evaluated in the emergency department for ear pain and concern for mastoiditis. You do not have mastoiditis. You do have inflammation of the left maxillary sinus. Please continue taking antibiotic that was prescribed by Dr. Harper. You were also found have a low potassium which was repleted. Please follow-up closely with her primary care provider and have her labs redrawn in 48 hours. Take naproxen as needed for pain, ondansetron as needed for nausea, meclizine as needed for vertigo. Take Flonase and Claritin to help with the inflammation of your sinuses. Follow-up closely with the ENT physician I have referred you to. Return to the emergency department if you develop a fever 100.4, new or other concerning symptoms. Patient Language: Luxembourgish Prescriptions: New loratadine 10 mg tablet 10 mg PO DAILY Qty: 14 0RF fluticasone propionate [Flonase Allergy Relief] 50 mcg/actuation spray,suspension 1 spray intranasal Q12H Qty: 16 0RF Rx Instructions: administer into each nostril ondansetron 4 mg tablet,disintegrating 4 mg PO Q8H Qty: 14 0RF naproxen 500 mg tablet 500 mg PO BID PRN (Reason: pain) Qty: 20 0RF No Action ipratropium bromide 21 mcg (0.03 %) spray,non-aerosol 2 spray intranasal TID PRN (Reason: allergy symptoms) Qty: 30 0RF Rx Instructions: administer into each nostril triamterene-hydrochlorothiazid 37.5-25 mg tablet 1 tablet PO QAM Qty: 90 3RF allopurinol 300 mg tablet 300 mg PO DAILY Qty: 90 3RF Rx Instructions: To prevent gout pantoprazole 40 mg tablet,delayed release (DR/EC) See Rx Instructions .ROUTE .COMPLEX Qty: 180 1RF Dose Instruction: TAKE 1 TABLET BY MOUTH TWICE A DAY Rx Instructions: TAKE 1 TABLET BY MOUTH TWICE A DAY meloxicam 15 mg tablet 15 mg PO DAILY Qty: 30 5RF levofloxacin 500 mg tablet 500 mg PO DAILY Qty: 10 0RF Follow-up/Referrals: Denzel Jin MD [Physician] - Rickey Morrissey MD [Primary Care Provider] -
[2024-11-15] MEDS: ONDANSETRON INJ 4 MG/2 ML VIAL IV PUSH (14:47)
[2024-11-15] MEDS: KETOROLAC 15 MG/ML VIAL (*BKC) IV PUSH (14:47)
[2024-11-15] MEDS: MECLIZINE HCL 25 MG TABLET PO (14:47)
[2024-11-15] MEDS: SODIUM CHLORIDE 0.9% IV 1,000 ML 999 ML IV CONT (14:47)
[2024-11-15 15:06] LABS: Basophils Absolute Auto 0.1 K/mm3 (0.0-0.1); Basophils Percent Auto 0.6 % (0.2-1.2); Eosinophils Absolute Auto 0.2 K/mm3 (0-0.3); Eosinophils Percent Auto 1.6 % (0-4.4); Hematocrit 40.5 % (37.0-47.0); Hemoglobin 13.3 g/dL (12.0-15.0); Immature Granulocyte Absolute 0.02 K/mm3 (0.00-0.031); Immature Granulocyte Percent A 0.2 % (0-0.5); Lymphocytes Absolute Auto 4.64 K/mm3 (0.9-3.2); Lymphocytes Percent Auto 40.1 % (18.3-44.2); Mean Corpuscular HGB Conc 32.8 g/dl (32-36); Mean Corpuscular Hemoglobin 29.9 pg (26-34); Mean Platelet Volume 9.9 fl (7.4-10.4); Monocytes Absolute Auto 0.8 K/mm3 (0.1-0.6); Monocytes Percent Auto 6.8 % (2.6-8.5); Neutrophils Absolute Auto 5.9 K/mm3 (1.3-6.7); Neutrophils Percent Auto 50.7 % (45.5-73.1); Platelet Count Result 355 k/mm3 (150-375); Red Blood Count 4.45 M/mm3 (4.2-5.4); White Blood Count 11.6 K/mm3 (4.5-10.0)
[2024-11-15 15:17] LABS: Alanine Aminotransferase 44 U/L (6-35); Albumin Level 4.6 g/dL (3.5-5.1); Alkaline Phosphatase 68 U/L (38-126); Anion Gap 12 mmol/L (4-12); Aspartate Amino Transferase 53 U/L (14-36); Bilirubin,Total 0.5 mg/dL (0.2-1.3); Blood Urea Nitrogen 22 mg/dL (7-17); Calcium 9.4 mg/dL (8.4-10.2); Carbon Dioxide 28 mmol/L (22-30); Chloride 100 mmol/L (98-107); Estimated CRCL calculation 46 ml/min; Estimated Glomerular Filt Rate > 60; Glucose 149 mg/dL (65-110); Sodium 140 mmol/L (137-145)
[2024-11-15 15:34] LABS: Influenza A QL RT-PCR Negative (Negative); Influenza B QL RT-PCR Negative (Negative); SARS-CoV-2 RNA PCR Negative (Negative)
--- NOTE | 2024-11-15 16:48 | P.CONS_ITS ---
Assessment and Plan Assessment and plan (1) Ear pain, right: Code(s): H92.01 - Otalgia, right ear Status: Acute Assessment and Plan: Ear pain cerumen impaction silent sinus syndrome also seen on the CT multiple non related issues patient needs to come see me in the office ideally next week early. Patient also has vertigo history of Meniere's. HPI Data of Consult Date/Time: 11/15/24 16:48 Primary Care Provider: Rickey Morrissey MD Consult Narrative Reason for consult: Ear pain Narrative: Kirsten Castaneda is a 69 year old female status post mastoidectomy on right side with new onset ear pain postauricular. CT temporal bone reviewed no evidence of mastoiditis no clinical evidence of mastoiditis weird as well. COUNT INCLUDES THE [facility] Past Medical History Medical History Meniere disease Irritable bowel syndrome without diarrhea MARIE positive Acid reflux Mastoid pain Surgical History Surgical History History of ear surgery Previous section H/O sinus surgery Family History Family History Father Family history of lung cancer Mother No problems noted. Grandparent Diabetes mellitus Other Colon polyp Family history of allergic disorder Social History Social History Smoking status: Never smoker Second hand tobacco smoke exposure: No Alcohol intake: never Substance use: never Substance use type: does not use Do You Feel Safe in your Home?: Yes Living arrangements: with family Occupation/Education: retired Gender identity (if verbalized by the patient): Female Sexual Orientation (if Verbalized by the Patient): Straight or Heterosexual Spiritual care concerns: No Agree to blood products: Yes Meds Home Medications and Allergies Home Medications Medication Instructions Recorded Confirmed Type pantoprazole 40 mg tablet,delayed See Rx Instructions .Route 05/21/24 09/28/24 Rx release .COMPLEX #180 tabs ipratropium bromide 21 mcg (0.03 2 spray intranasal TID PRN allergy 08/30/24 09/28/24 Rx %) nasal spray symptoms #30 mL allopurinol 300 mg tablet 300 mg PO DAILY #90 tabs 09/28/24 09/28/24 Rx triamterene 37.5 1 tablet PO QAM #90 tabs 09/28/24 09/28/24 Rx mg-hydrochlorothiazide 25 mg tablet meloxicam 15 mg tablet 15 mg PO DAILY #30 tabs 10/25/24 Rx levofloxacin 500 mg tablet 500 mg PO DAILY #10 tabs 11/09/24 Rx Allergies Allergy/AdvReac Type Severity Reaction Status Date / Time amoxicillin AdvReac Severe Diarrhea Verified 09/28/24 08:54 cefprozil AdvReac Intermediate Vomiting Verified 09/28/24 08:54 clarithromycin (From Biaxin) AdvReac Unknown Unknown Verified 09/28/24 08:54 clavulanic acid (From AdvReac Unknown nausea Verified 09/28/24 08:54 Augmentin) lansoprazole (From Prevacid) AdvReac Unknown Unknown Verified 09/28/24 08:54 sulfamethoxazole (From AdvReac Unknown Unknown Verified 09/28/24 08:54 Septra) trimethoprim (From Septra) AdvReac Unknown Unknown Verified 09/28/24 08:54 TAPE Allergy Mild REDDNESS Uncoded 09/28/24 08:54 Vital Signs Vital Signs - 24 hr 11/15/24 13:58 11/15/24 14:19 Temperature 36.4 C Pulse Rate 112 H 111 H Respiratory Rate 16 18 Blood Pressure 163/88 H 142/82 H Pulse Oximetry 99 98 Oxygen Delivery Room Air Exam 2 Narrative: Normal ENT exam right postauricular pain severe impactions bilaterally Results Labs 11/15/24 14:47 11/15/24 14:47 Labs: Short CBC 11/15/24 Range/Units 14:47 WBC 11.6 H (4.5-10.0) K/mm3 Hgb 13.3 (12.0-15.0) g/dL Hct 40.5 (37.0-47.0) % Plt Count 355 (150-375) k/mm3 BMP 11/15/24 14:47 Sodium 140 Potassium 3.0 L Chloride 100 Carbon Dioxide 28 BUN 22 H Creatinine 0.87 Glucose 149 H Calcium 9.4 Liver Function 11/15/24 Range/Units 14:47 Total Bilirubin 0.5 (0.2-1.3) mg/dL AST 53 H (14-36) U/L ALT 44 H (6-35) U/L Alkaline Phosphatase 68 (38-126) U/L Albumin 4.6 (3.5-5.1) g/dL
[2024-11-15 17:04] LABS: Magnesium 1.9 mg/dL (1.6-2.3)
[2024-11-15] MEDS: POTASSIUM CHLORIDE 20 MEQ PACKET (FOR LIQUID) 40 MEQ PO (17:44)
== END 2024-11-15 17:48 | disposition home or self-care (01) ==
PROVIDERS: Emergency Provider Physician Assistant; PCP Family Medicine Adolescent Medicine
DX: H92.01 Otalgia, right ear (principal); E87.6 Hypokalemia; H81.09 Meniere's disease, unspecified ear; J01.10 Acute frontal sinusitis, unspecified; Z20.822 Contact with and (suspected) exposure to COVID-19
CPT/HCPCS: 36415; 70481; 80053; 83735; 85025; 87636; 93005; 96361; 96374; 96375; 99284; A9270; J1885; J2405; J7030; Q9967

== ENCOUNTER 2024-12-04 07:18 | Outpatient (CLI) | payer OTHER, SELFPAY ==
--- NOTE | ~2024-12-04 | MR_ITS ---
MRI of the brain Clinical History: Diplopia Technique: Axial and sagittal T1-weighted images were acquired. These were followed by axial T2-weigh don, diffusion weighted, gradient, and FLAIR images. Findings: No abnormal signal seen in the brain parenchyma. No acute infarct, intracranial hemorrhage, or mass lesion. Ventricles and subarachnoid spaces are unremarkable. Orbits are unremarkable. There is left maxillary sinus disease. Remaining paranasal sinuses and mastoid air cells are clear. Major intracranial flow voids are intact. Sagittal midline structures are intact. IMPRESSION: Left maxillary sinus disease, otherwise unremarkable exam. Reviewed, dictated and finalized at location .
== END 2024-12-04 07:19 | disposition home or self-care (01) ==
LOC: MICIMG 07:19
PROVIDERS: PCP Family Medicine Adolescent Medicine; Visit Provider Family Medicine Adolescent Medicine
DX: H53.2 Diplopia (principal); J32.0 Chronic maxillary sinusitis
CPT/HCPCS: 70551

== ENCOUNTER 2025-02-16 11:02 | Emergency (ER) | payer OTHER, SELFPAY ==
[2025-02-16 11:11] VITALS: BP 139/79; PULSE 91; RESP 18; TEMP 36.7; O2SAT 98
--- NOTE | 2025-02-16 11:18 | ED.GENADULT ---
HPI - General Adult General Chief complaint: Upper Respiratory Infection Stated complaint: Cough/Back Pain Time Seen by Provider: 02/16/25 11:18 Source: patient Mode of arrival: ambulatory Limitations: no limitations History of Present Illness HPI narrative: 69-year-old female patient presents to the [facility] with complaints cough and upper back pain. Patient states she saw her primary doctor about 3-4 weeks ago and he was treating her for bronchitis and put her on 2 different types of antibiotics. Patient states she did not receive any steroids but continues to have a coughing and states her symptoms have not resolved. Denies fevers body aches or chills. Patient states she continues to have some drainage denies shortness of breath or chest pain at this time. Patient states she has a little bit of right upper back pain especially when coughing. Denies any abdominal pain nausea vomiting or diarrhea. Related Data Home Medications ?Medication ?Instructions ?Recorded ?Confirmed ?Last Taken ?Type triamterene 37.5 1 tablet PO QAM 01/28/25 Unknown History mg-hydrochlorothiazide 25 mg tablet Allergies Allergy/AdvReac Type Severity Reaction Status Date / Time amoxicillin AdvReac Severe Diarrhea Verified 02/16/25 11:09 cefprozil AdvReac Intermediate Vomiting Verified 02/16/25 11:09 clarithromycin (From Biaxin) AdvReac Unknown Unknown Verified 02/16/25 11:09 clavulanic acid (From AdvReac Unknown nausea Verified 02/16/25 11:09 Augmentin) lansoprazole (From Prevacid) AdvReac Unknown Unknown Verified 02/16/25 11:09 sulfamethoxazole (From AdvReac Unknown Unknown Verified 02/16/25 11:09 Septra) trimethoprim (From Septra) AdvReac Unknown Unknown Verified 02/16/25 11:09 TAPE Allergy Mild REDDNESS Uncoded 02/16/25 11:09 Review of Systems Review of Systems: CONSTITUTIONAL: Denies fever, chills, or sweats. EYES: Denies visual changes, redness, or discharge. ENT: Denies rhinorrhea, congestion, sore throat, or otalgia. CARDIOVASCULAR: Denies chest pain, palpitations, or edema. RESPIRATORY: Positive cough, denies dyspnea. GASTROINTESTINAL: Denies abdominal pain, nausea, vomiting, or diarrhea. GENITOURINARY: Denies dysuria or hematuria. SKIN: Denies rash or itching. MUSCULOSKELETAL: Denies back pain, joint pain, or myalgia. NEUROLOGIC: Denies headache, numbness, or weakness. PSYCHIATRIC: Denies anxiety or depression. [facility] Past Medical History Medical History Meniere disease Irritable bowel syndrome without diarrhea MARIE positive Acid reflux Mastoid pain Surgical History Surgical History History of ear surgery Previous section H/O sinus surgery Family History Family History Father Family history of lung cancer Mother No problems noted. Grandparent Diabetes mellitus Other Colon polyp Family history of allergic disorder Social History Social History Smoking status: Never smoker Second hand tobacco smoke exposure: No Alcohol intake: never Substance use: never Substance use type: does not use Do You Feel Safe in your Home?: Yes Living arrangements: with family Occupation/Education: retired Gender identity (if verbalized by the patient): Female Sexual Orientation (if Verbalized by the Patient): Straight or Heterosexual Spiritual care concerns: No Agree to blood products: Yes Comments At the time of my signature I agree with nursing past medical history, surgical, social, and family history. There is no relevant family history pertinent to the presenting complaint. Exam Narrative: GENERAL: Well-appearing, well-nourished, and in no acute distress. HEAD: Normocephalic, atraumatic. EYES: PERRLA and EOMI. ENT: Nares clear, no rhinorrhea or epistaxis. Mucous membranes moist. Posterior pharynx with no erythema, tonsillar enlargement, exudates or lesions present. Bilateral TMs are clear no erythema foreign bodies the canal. NECK: Supple. No lymphadenopathy CHEST: Clear to auscultation. No respiratory distress. HEART: Regular rate and rhythm. No murmur heard. Normal peripheral pulses. ABDOMEN: Soft, nontender, nondistended, normal active bowel sounds. EXTREMITIES: Normal range of motion. No edema. SKIN: Warm, dry, no rash. NEURO: No focal deficits. Alert and oriented x3. Course Course Level of Care: Express Care Visit Vital Signs Vital signs: Vital Signs Temperature 36.7 C 02/16/25 11:11 Pulse Rate 91 02/16/25 11:11 Respiratory Rate 18 02/16/25 11:11 Blood Pressure 139/79 02/16/25 11:11 Pulse Oximetry 98 02/16/25 11:11 Oxygen Delivery Room Air 02/16/25 11:11 Temperature 36.7 C 02/16/25 11:11 Pulse Rate 91 02/16/25 11:11 Respiratory Rate 18 02/16/25 11:11 Blood Pressure 139/79 02/16/25 11:11 Pulse Oximetry 98 02/16/25 11:11 Oxygen Delivery Room Air 02/16/25 11:11 Vital signs reviewed. Medical Decision Making MDM Narrative Medical decision making narrative: Discussed with patient that we will discharge her home with oral steroid and albuterol inhaler to treat the bronchitis. Discussed with her that to treat bronchitis you need to treat the inflammation in the lungs and many times antibiotics do not treat inflammation. Discussed patient highly recommend that she take an [id number] antihistamine something such as Zyrtec, Claritin and Yeni. Patient verbalized understanding denies any other questions or concerns at this time. Differential Diagnosis Differential Diagnosis: Differential diagnosis: Allergic rhinitis, chronic sinusitis, tonsillitis, acute sinusitis, infectious mononucleosis, seasonal influenza, pertussis, diphtheria, meningococcal disease, viral syndrome, viral bronchitis, RSV, COVID-19 Vital Signs Vital Signs: Vital Signs Temperature 36.7 C 02/16/25 11:11 Pulse Rate 91 02/16/25 11:11 Respiratory Rate 18 02/16/25 11:11 Blood Pressure 139/79 02/16/25 11:11 Pulse Oximetry 98 02/16/25 11:11 Oxygen Delivery Room Air 02/16/25 11:11 Temperature 36.7 C 02/16/25 11:11 Pulse Rate 91 02/16/25 11:11 Respiratory Rate 18 02/16/25 11:11 Blood Pressure 139/79 02/16/25 11:11 Pulse Oximetry 98 02/16/25 11:11 Oxygen Delivery Room Air 02/16/25 11:11 Critical Care Time Critical Care Time Critical Care Time: No Discharge Plan Discharge Clinical Impression: Acute bronchitis, viral Patient Disposition: Home Condition: Stable Instructions: Antibiotic Form, Acute Bronchitis (ED) Additional Instructions: Acute bronchitis is swelling and irritation in the air passages of your lungs. This irritation may cause you to cough or have other breathing problems. Acute bronchitis often starts because of another viral illness, such as a cold or the flu. The illness spreads from your nose and throat to your windpipe and airways. Bronchitis is often called a chest cold. Acute bronchitis lasts about 2-6 weeks and is usually not a serious illness. AFTER YOU LEAVE: Medicines: Ibuprofen or acetaminophen: These medicines help lower a fever. They are available without a doctor's order. Ask your healthcare provider which medicine is right for you. Ask how much to take and how often to take it. Follow directions. These medicines can cause stomach bleeding if not taken correctly. Ibuprofen can cause kidney damage. Do not take ibuprofen if you have kidney disease, an ulcer, or allergies to aspirin. Acetaminophen can cause liver damage. Do not drink alcohol if you take acetaminophen. Cough medicine: This medicine helps loosen mucus in your lungs and make it easier to cough up. This can help you breathe easier. Inhalers: You may need one or more inhalers to help you breathe easier and cough less. An inhaler gives your medicine in a mist form so that you can breathe it into your lungs. Ask your healthcare provider to show you how to use your inhaler correctly. Steroid medicine: Steroid medicine helps open your air passages so you can breathe easier. Take your medicine as directed. Call your healthcare provider if you think your medicine is not helping or if you have side effects. How to use an inhaler: Shake the inhaler well to make sure you get the correct amount of medicine per puff. Remove the cover from your inhaler's mouthpiece. If you are using a spacer, connect your inhaler to the flat end of the spacer. Exhale as much air from your lungs as you can. Put the mouthpiece in your mouth past your front teeth and rest it on the top of your tongue. Do not block the mouthpiece opening with your tongue. Breathe in through your mouth at a slow and steady rate. As you do this, press the inhaler to release the puff of medicine. Finish breathing in slowly and deeply as you inhale the medicine. When your lungs are full, hold your breath for 10 seconds. Then breathe out slowly through puckered lips or through your nose. If you need to take more puffs, wait at least 1 minute between each puff. Rinse your mouth with water after you use the inhaler. This may keep you from getting a mouth infection or irritation. Follow the instructions that come with your inhaler to clean it. You should clean your inhaler at least once a week. Ways to care for yourself: Avoid alcohol: Alcohol dulls your urge to cough and sneeze. When you have bronchitis, you need to be able to cough and sneeze to clear your air passages. Alcohol also causes your body to lose fluid. This can make the mucus in your lungs thicker and harder to cough up. Avoid irritants in the air: Do not smoke or allow others to smoke around you. Avoid chemicals, fumes, and dust. Wear a face mask if you must work around dust or fumes. Stay inside on days when air pollution levels are high. If you have allergies, stay inside when pollen counts are high. Avoid aerosol products. This includes spray-on deodorant, bug spray, and hair spray. Drink more liquids: Most people should drink at least 8 eight-ounce cups of water a day. You may need to drink more liquids when you have acute bronchitis. Liquids help keep your air passages moist and help you cough up mucus. Get more rest: You may feel like resting more. Slowly start to do more each day. Rest when you feel it is needed. Eat healthy foods: Eat a variety healthy foods every day. Your diet should include fruits, vegetables, breads, and protein (such as chicken, fish, and beans). Dairy products (such as milk, cheese, and ice cream) can sometimes increase the amount of mucus your body makes. Ask if you should decrease your intake of dairy products. Use a humidifier: Use a cool mist humidifier to increase air moisture in your home. This may make it easier for you to breathe and help decrease your cough. Decrease your risk of acute bronchitis: Get the vaccinations you need: Ask your healthcare provider if you should get vaccinated against the flu or pneumonia. Avoid things that may irritate your lungs: Stay inside or cover your mouth and nose with a scarf when you are outside during cold weather. You should also stay inside on days when air pollution levels are high. If you have allergies, stay inside when pollen counts are high. Avoid using aerosol products in your home. This includes spray-on deodorant, bug spray, and hair spray. Avoid the spread of germs: Wash your hands often with soap and water. Carry germ-killing gel with you. You can use the gel to clean your hands when there is no soap and water available. Do not touch your eyes, nose, or mouth unless you have washed your hands first. Always cover your mouth when you cough. Cough into a tissue or your shirtsleeve so you do not spread germs from your hands. Try to avoid people who have a cold or the flu. If you are sick, stay away from others as much as possible. Follow up with your healthcare provider as directed: Write down questions you have so you will remember to ask them during your follow-up visits. Contact your healthcare provider if: You have a fever. Your skin becomes itchy or you have a rash after you take your medicine. Your breathing problems do not go away or get worse. Your cough does not get better with treatment. You cough up blood. You have questions or concerns about your condition or care. Seek care immediately or call 911 if: You faint. Your lips or fingernails turn blue. You feel like you are not getting enough air when you breathe. You have swelling of your lips, tongue, or throat that makes it hard to breathe or swallow. Patient Language: Latvian Prescriptions: New prednisone 20 mg tablet 40 mg PO DAILY 5 Days Qty: 10 0RF albuterol sulfate [Ventolin HFA] 90 mcg/actuation HFA aerosol inhaler 2 puff INHALATION .Q4 hours PRN (Reason: cough) Qty: 18 0RF No Action pantoprazole 40 mg tablet,delayed release (DR/EC) 40 mg PO BID Qty: 180 1RF atorvastatin [Lipitor] 20 mg tablet 20 mg PO DAILY Qty: 90 1RF triamterene-hydrochlorothiazid 37.5-25 mg tablet 1 tablet PO QAM allopurinol 300 mg tablet 300 mg PO DAILY Follow-up/Referrals: Rickey Morrissey MD [Primary Care Provider] - Time of Disposition: 11:31
== END 2025-02-16 11:35 | disposition home or self-care (01) ==
PROVIDERS: Emergency Provider Nurse Practitioner Family; PCP Family Medicine Adolescent Medicine
DX: J20.8 Acute bronchitis due to other specified organisms (principal); K21.9 Gastro-esophageal reflux disease without esophagitis; H81.09 Meniere's disease, unspecified ear
CPT/HCPCS: 99213; G0463

== ENCOUNTER 2025-03-18 01:35 | Day surgery (SDC) | payer OTHER, SELFPAY ==
[2025-03-07 08:51] VITALS: BMI 28.0
[2025-03-18 06:23] VITALS: BP 130/86; PULSE 101; RESP 18; TEMP 36.6; O2SAT 100
[2025-03-18] MEDS: LACTATED RINGERS 1,000 ML 150 ML IV CONT (06:36)
--- NOTE | 2025-03-18 07:20 | WPDANESEPPF ---
Anes - Initial Pre Proc Eval Procedure: Operation Date: 03/18/25 07:30 Proposed Procedures p Screening Colonoscopy - Neo Gomez MD Date/Time: 03/18/25 07:20 Surgeon: Neo Gomez MD Pre Op Diagnosis: Encounter for screening for malignant neoplasm of Patient Data Age: 70 Gender: F Height: 1.52 m Weight: 65 kg Last Vital Signs Temp 97.9 F 03/18/25 06:23 Pulse 101 H 03/18/25 06:23 Resp 18 03/18/25 06:23 BP 130/86 03/18/25 06:23 Pulse Ox 100 03/18/25 06:23 O2 Del Method Room Air 03/18/25 06:23 Allergies Allergy/AdvReac Type Severity Reaction Status Date / Time amoxicillin AdvReac Severe Diarrhea Verified 03/07/25 08:47 cefprozil AdvReac Intermediate Vomiting Verified 03/07/25 08:47 clarithromycin (From Biaxin) AdvReac Unknown Unknown Verified 03/07/25 08:47 clavulanic acid (From AdvReac Unknown nausea Verified 03/07/25 08:47 Augmentin) lansoprazole (From Prevacid) AdvReac Unknown Unknown Verified 03/07/25 08:47 sulfamethoxazole (From AdvReac Unknown Unknown Verified 03/07/25 08:47 Septra) trimethoprim (From Septra) AdvReac Unknown Unknown Verified 03/07/25 08:47 TAPE Allergy Mild REDDNESS Uncoded 03/07/25 08:47 Home Medications ?Medication ?Instructions ?Recorded ?Confirmed ?Type pantoprazole 40 mg tablet,delayed 40 mg PO BID #180 tabs 11/24/24 03/07/25 Rx release atorvastatin 20 mg tablet (Lipitor) 20 mg PO DAILY #90 tabs 12/20/24 03/07/25 Rx triamterene 37.5 1 tablet PO QAM 01/28/25 03/07/25 History mg-hydrochlorothiazide 25 mg tablet albuterol sulfate 90 mcg/actuation 2 puff inhalation .Q4 hours PRN 02/16/25 03/07/25 Rx aerosol inhaler (Ventolin HFA) cough #18 grams prednisone 20 mg tablet 40 mg (2 x 20 mg) PO DAILY cough 5 02/16/25 03/07/25 Rx days #10 tabs ofloxacin 0.3 % ear drops 3 drp EACH EAR BID #10 mL 02/20/25 03/07/25 Rx Patient hx anesthesia problems: none Family hx anesthesia problems: none Results Review: All pre-operative results and documents have been reviewed as part of the pre-operative evaluation. [facility] Past Medical History Medical History Meniere disease Irritable bowel syndrome without diarrhea MARIE positive Acid reflux Mastoid pain Surgical History Surgical History History of ear surgery Previous section H/O sinus surgery Family History Family History Father Family history of lung cancer Mother No problems noted. Grandparent Diabetes mellitus Other Colon polyp Family history of allergic disorder Social History Social History Smoking status: Never smoker Second hand tobacco smoke exposure: No Alcohol intake: never Substance use: never Substance use type: does not use Do You Feel Safe in your Home?: Yes Living arrangements: with family Occupation/Education: retired Gender identity (if verbalized by the patient): Female Sexual Orientation (if Verbalized by the Patient): Straight or Heterosexual Spiritual care concerns: No Agree to blood products: Yes Anes - Eval Final PreProcedure Day of Procedure 03/18/25 07:20 Patient weight: normal Lungs: normal air movement Airway: Mallampati scale class II Neurological: alert and oriented Last oral intake: >/= 8 hours ASA classification: II Emergent: no Anesthetic plan: proceed Anesthesia type and monitoring: general GIVS and standard monitoring Results Review: All pre-operative results and documents have been reviewed as part of the pre-operative evaluation. Hyperlipidemia, active w walking outdoors/treadmill, no cp or sob. Informed Consent: The patient's anesthetic plan and its attendant risks and benefits were discussed with the patient/family/POA. Questions were solicited and answers provided to the satisfaction of the patient/family/POA.
--- NOTE | 2025-03-18 07:50 | PM.IMHP ---
H&P: HPI History of Present Illness Date/Time: 03/18/25 07:50 Chief Complaint: Screening colonoscopy Narrative: This is the patient's first colonoscopy after almost 20 years.. There are no GI symptoms and there is no family history of colorectal cancer. Review of Systems Review of Systems: All systems reviewed & are unremarkable except as noted in HPI and below PMFSH Past Medical History Medical History Meniere disease Irritable bowel syndrome without diarrhea MARIE positive Acid reflux Mastoid pain Surgical History Surgical History History of ear surgery Previous section H/O sinus surgery Family History Family History Father Family history of lung cancer Mother No problems noted. Grandparent Diabetes mellitus Other Colon polyp Family history of allergic disorder Social History Social History Smoking status: Never smoker Second hand tobacco smoke exposure: No Alcohol intake: never Substance use: never Substance use type: does not use Do You Feel Safe in your Home?: Yes Living arrangements: with family Occupation/Education: retired Gender identity (if verbalized by the patient): Female Sexual Orientation (if Verbalized by the Patient): Straight or Heterosexual Spiritual care concerns: No Agree to blood products: Yes Meds Home Medications and Allergies Home Medications ?Medication ?Instructions ?Recorded ?Confirmed ?Type pantoprazole 40 mg tablet,delayed 40 mg PO BID #180 tabs 11/24/24 03/07/25 Rx release atorvastatin 20 mg tablet (Lipitor) 20 mg PO DAILY #90 tabs 12/20/24 03/07/25 Rx triamterene 37.5 1 tablet PO QAM 01/28/25 03/07/25 History mg-hydrochlorothiazide 25 mg tablet albuterol sulfate 90 mcg/actuation 2 puff inhalation .Q4 hours PRN 02/16/25 03/07/25 Rx aerosol inhaler (Ventolin HFA) cough #18 grams prednisone 20 mg tablet 40 mg (2 x 20 mg) PO DAILY cough 5 02/16/25 03/07/25 Rx days #10 tabs ofloxacin 0.3 % ear drops 3 drp EACH EAR BID #10 mL 02/20/25 03/07/25 Rx Allergies Allergy/AdvReac Type Severity Reaction Status Date / Time amoxicillin AdvReac Severe Diarrhea Verified 03/07/25 08:47 cefprozil AdvReac Intermediate Vomiting Verified 03/07/25 08:47 clarithromycin (From Biaxin) AdvReac Unknown Unknown Verified 03/07/25 08:47 clavulanic acid (From AdvReac Unknown nausea Verified 03/07/25 08:47 Augmentin) lansoprazole (From Prevacid) AdvReac Unknown Unknown Verified 03/07/25 08:47 sulfamethoxazole (From AdvReac Unknown Unknown Verified 03/07/25 08:47 Septra) trimethoprim (From Septra) AdvReac Unknown Unknown Verified 03/07/25 08:47 TAPE Allergy Mild REDDNESS Uncoded 03/07/25 08:47 Vital Signs Vital Signs - 24 hr 03/18/25 06:23 Temperature 97.9 F Pulse Rate 101 H Respiratory Rate 18 Blood Pressure 130/86 Pulse Oximetry 100 Oxygen Delivery Room Air Exam Const: General: cooperative and healthy appearing Resp: Effort & Inspection: normal respiratory effort and able to speak in complete sentences Auscultation: clear to auscultation bilaterally Cardio: Rate: regular rate Rhythm: regular rhythm GI: Inspection: normal to inspection GI Palp: No No hepatosplenomegaly present Auscultation: normal bowel sounds Rectal Exam: deferred Skin: General skin exam: normal color Psych: Appearance: grossly normal Mental Status: mental status grossly normal Assessment and Plan Assessment and plan (1) Colon cancer screening: Code(s): Z12.11 - Encounter for screening for malignant neoplasm of colon Status: Acute Assessment and Plan: The patient is deemed a good candidate for the procedure. Consent signed. Will proceed.
[2025-03-18 07:52] VITALS: BP 123/79; PULSE 85; RESP 19; O2SAT 98
[2025-03-18 08:02] VITALS: BP 120/82; PULSE 79; RESP 16; O2SAT 98
[2025-03-18 08:12] VITALS: BP 117/76; PULSE 81; RESP 14; O2SAT 100
== END 2025-03-18 08:21 | disposition home or self-care (01) ==
PROVIDERS: PCP Family Medicine Adolescent Medicine; Referring Provider Nurse Practitioner Family; Visit Provider Internal Medicine Gastroenterology
PROC: 0DJD8ZZ Inspection of Lower Intestinal Tract, Via Natural or Artificial Opening Endoscopic (ICD-10-PCS; CPT 45378; principal; 2025-03-18 07:30)
DX: Z12.11 Encounter for screening for malignant neoplasm of colon (principal); K64.8 Other hemorrhoids; K57.30 Diverticulosis of large intestine without perforation or abscess without bleeding; E78.5 Hyperlipidemia, unspecified; K58.9 Irritable bowel syndrome, unspecified; K21.9 Gastro-esophageal reflux disease without esophagitis; H81.09 Meniere's disease, unspecified ear; Z79.51 Long term (current) use of inhaled steroids; Z79.52 Long term (current) use of systemic steroids; Z98.890 Other specified postprocedural states; Z83.719 Family history of colon polyps, unspecified; Z80.1 Family history of malignant neoplasm of trachea, bronchus and lung
CPT/HCPCS: G0105; J2704; J7120

== ENCOUNTER 2025-05-14 09:55 | Outpatient (CLI) | payer OTHER, SELFPAY ==
--- NOTE | ~2025-05-14 | XR_ITS ---
Examination: XR chest 2V Clinical History: R05.9 - Cough, unspecified Comparison: 12/14/2021 Technique: PA and Lateral Findings: Cardiomediastinal silhouette normal size and configuration. Lungs clear. No acute bony abnormality. IMPRESSION: 1. No acute cardiopulmonary findings. Reviewed, dictated and finalized at location R. PROVIDER RELATIONS
== END 2025-05-14 09:56 | disposition home or self-care (01) ==
LOC: MICIMG 09:56
PROVIDERS: PCP Nurse Practitioner; Visit Provider Nurse Practitioner
DX: R05.9 Cough, unspecified (principal)
CPT/HCPCS: 71046

== ENCOUNTER 2025-06-10 16:57 | Emergency (ER) | payer OTHER, SELFPAY ==
[2025-06-10 17:04] VITALS: BP 156/88; PULSE 112; RESP 16; TEMP 36.6; O2SAT 100
--- NOTE | 2025-06-10 18:04 | ED_ITS ---
HPI - URI/Sore Throat General Chief Complaint: Upper Respiratory Infection Stated Complaint: hurts to cough Time Seen by Provider: 06/10/25 18:00 Source: patient, RN notes reviewed and old records reviewed Mode of arrival: ambulatory Limitations: no limitations History of Present Illness HPI Narrative: 70 year old female who presents to [facility] with complaints of sinus congestion and drainage for the past 10 days and for the past 4 days she has had chest congestion/pain that is worse with cough. Patient reports that she has not taken anything because nothing ever works. Patient has been having trouble with sinus drainage.and sinus symptoms for months and has been on nummerous antibiotics and some steroids also which will make it better for awhile then symptoms come back. She reports that she has an appointment eith ENT in 2 weeks. MD elicited complaint: cough, rhinorrhea, nasal congestion and sinus pain Onset (ago): day(s) (10 dayssinus congestion with 4 days of chest congestion and cough ) Severity: moderate Description of mucous: other (white thick) Treatments prior to arrival: none (states nothing seems to help) Related Data Home Medications ?Medication ?Instructions ?Recorded ?Confirmed ?Last Taken ?Type triamterene 37.5 1 tablet PO QAM 01/28/2503/28 Unknown History mg-hydrochlorothiazide 25 mg tablet loratadine 10 mg tablet (Claritin) 10 mg PO DAILY 05/0406/11/25 Unknown His tory Allergies Allergy/AdvReac Type Severity Reaction Status Date / Time amoxicillin AdvReac Severe Diarrhea Verified 06/11/25 08:42 cefprozil AdvReac Intermediate Vomiting Verified 06/11/25 08:42 clarithromycin (From Biaxin) AdvReac Unknown Unknown Verified 06/11/25 08:42 clavulanic acid (From AdvReac Unknown nausea Verified 06/11/25 08:42 Augmentin) lansoprazole (From Prevacid) AdvReac Unknown Unknown Verified 06/11/25 08:42 sulfamethoxazole (From AdvReac Unknown Unknown Verified 06/11/25 08:42 Septra) trimethoprim (From Septra) AdvReac Unknown Unknown Verified 06/11/25 08:42 TAPE Allergy Mild REDDNESS Uncoded 06/11/25 08:42 Review of Systems Review of Systems: CONSTITUTIONAL: Reports some malaise, no chills, sweats, or fever. EYES: Denies visual changes, redness, or discharge. ENT: Reports rhinorrhea, congestion, sinus pain,no otalgia and no sore throat. CARDIOVASCULAR: Denies chest pain, palpitations, or edema. RESPIRATORY: Reports productive cough white mucous that is thick with some pain with cough in her chest? Denies dyspnea. GASTROINTESTINAL: Denies abdominal pain, nausea, vomiting, diarrhea SKIN: Denies rash or itching. MUSCULOSKELETAL: Denies myalgia. NEUROLOGIC: Denies headache. All systems reviewed & are unremarkable except as noted in HPI and below PMFSH Past Medical History Medical History BMI 27.0-27.9,adult Meniere disease MARIE positive Acid reflux Mastoid pain Surgical History Surgical History History of ear surgery Previous section H/O sinus surgery Family History Family History Father Family history of lung cancer Mother Grandparent Diabetes mellitus Other Colon polyp Family history of allergic disorder Social History Social History Smoking status: Never smoker Second hand tobacco smoke exposure: No Alcohol intake: never Substance use: never Substance use type: does not use Lack of Transportation: No Lack of Food: Never True Current Housing: I Have Housing Concerned About Future Housing: No Difficulty Paying Gas/Electric Bills: No Difficulty Paying for Meds: No Currently Unemployed: No Education: High School Diploma/GED Difficulty w/ Childcare or Family Care: No Living arrangements: with family Occupation/Education: retired Additional occupation/education comments: 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 Gender identity (if verbalized by the patient): Female Sexual Orientation (if Verbalized by the Patient): Straight or Heterosexual Spiritual care concerns: No Agree to blood products: Yes Comments At time of signature, agree with nursing past medical, surgical, social and family history. There is no relevant family history pertinent to the presenting complaint Exam Narrative: GENERAL: Well-appearing, well-nourished, and in no acute distress. HEAD: Normocephalic EYES: PERRLA, conjunctivae clear ENT: Nares clear, turbinates edematous and erythematous, clear to white discharge, sinus pressure voiced.. Mucous membranes moist. TM pearly astudillo with dull light reflex bilaterally; no tragal tenderness. Oropharynx erythematous without lesions. Tonsils not enlarged and without exudate, no drooling, no hoarseness, no trismus, uvula midline.post nasal drainage NECK: Supple. No lymphadenopathy CHEST: Clear to auscultation, breath sounds equal. No wheezing, rhonchi, rales, or stridor. No respiratory distress, speaks in full sentences.pain to chest at times with cough productive cough white thick mucous [id number] on room air HEART: Regular rate and rhythm. No murmur heard. SKIN: Warm, dry, no rash. NEURO: Alert and oriented x3. PSYCH: Normal mood and affect Course Course Level of Care: Express Care Visit Vital Signs Vital signs: Vital Signs Temperature 36.6 C 06/10/25 17:04 Pulse Rate 112 H 06/10/25 17:04 Respiratory Rate 16 06/10/25 17:04 Blood Pressure 156/88 H 06/10/25 17:04 Pulse Oximetry 100 06/10/25 17:04 Oxygen Delivery Room Air 06/10/25 17:04 Temperature 36.6 C 06/10/25 17:04 Pulse Rate 112 H 06/10/25 17:04 Respiratory Rate 16 06/10/25 17:04 Blood Pressure 156/88 H 06/10/25 17:04 Pulse Oximetry 100 06/10/25 17:04 Oxygen Delivery Room Air 06/10/25 17:04 reviewed MDM MDM Narrative Medical decision making narrative: 70 year old female with complaints of 10 days of sinus congestion facial pressure and 4 days of congestion/pain with cough of thick white mucous. Patient reports has has sinus issues for past 3 months with multiple antibiotics, steroids antihistamines and nasal spray tried with resolution of symptoms; but have reoccurred. Patient has appointment with ENT in 2 weeks for further evaluation.Will treat patient with antibiotic steroid, antihistamine and decogestant recommendation. Patient received anticipatory guidance and reasons to seek ED care reviewed with understanding voiced. Differential Diagnosis Differential Diagnosis: Differential diagnostic considerations for upper respiratory infection include upper respiratory infection, croup, otitis media, sinusitis, viral infection, bronchitis, influenza, pharyngitis, strep, uvulitis.? Critical Care Time Critical Care Time Critical Care Time: No Discharge Plan Discharge Clinical Impression: Acute bacterial sinusitis, Cough in adult patient Patient Disposition: Home Condition: Stable Instructions: Antibiotic Form, Sinusitis (ED) Additional Instructions: Increase fluids especially juices and water [id number] cough and cold medicine of your choice for your symptoms Prescription cough medicine as directed--caution drowsiness and no driving or alcohol Zyrtec Claritin or Yeni daily continue your nasal spray daily Steroids as directed--take with food heat to the face 20-30 minutes 4-6 times a day for pain Salt water gargles, throat lozenges or throat sprays as desired Antibiotic as directed--finished the medication If your symptoms persist, change or worsen significantly before you can contact your personal physician then please, without delay, go to the emergency department for further evaluation. Follow-up with PCP in 7-10 days or sooner if needed Follow up with PCP soon in regards to your blood pressure which is elevated above threshold for referral. Blood pressure above 120/80 may indicate pre- hypertension. 156/88 Yeni daily and include Coricidin orally Patient Language: Citizen Of [place] Prescriptions: New prednisone 20 mg tablet 40 mg PO DAILY 5 Days Qty: 10 0RF levofloxacin 500 mg tablet 500 mg PO DAILY Qty: 10 0RF No Action loratadine [Claritin] 10 mg tablet 10 mg PO DAILY pantoprazole 40 mg tablet,delayed release (DR/EC) 40 mg PO BID Qty: 180 1RF triamterene-hydrochlorothiazid 37.5-25 mg tablet 1 tablet PO QAM dicyclomine 10 mg capsule 10 mg PO BID Qty: 60 3RF atorvastatin [Lipitor] 20 mg tablet 20 mg PO DAILY Qty: 90 1RF Follow-up/Referrals: Rickey Morrissey MD [Primary Care Provider, Family Practice] Time of Disposition: 18:15 Quality [place] Coma Scale Eyes: Open Verbal: Oriented and Alert Motor: Follows Commands [place] Coma Total Score: 15
== END 2025-06-10 18:23 | disposition home or self-care (01) ==
PROVIDERS: Emergency Provider Registered Nurse; PCP Family Medicine Adolescent Medicine
DX: J01.90 Acute sinusitis, unspecified (principal); R05.9 Cough, unspecified; K21.9 Gastro-esophageal reflux disease without esophagitis; H81.09 Meniere's disease, unspecified ear
CPT/HCPCS: 99213; G0463

== ENCOUNTER 2025-07-01 08:13 | Outpatient (CLI) | payer OTHER, SELFPAY ==
--- NOTE | ~2025-07-01 | CT_ITS ---
EXAMINATION: CT sinus wo con DATE: 07/01/2025 08:31 INDICATION: Sinusitis TECHNIQUE: Computed tomography (CT) of the paranasal sinuses was performed without intravenous contrast. The dose-length product was 312.74 mGy-cm. Automated exposure control and iterative reconstruction technique were employed. COMPARISON: CT dated 11/15/2024 FINDINGS: There is near complete opacification of the left maxillary sinus. There is mucoperiosteal reaction. There is postoperative change medial wall right maxillary sinus with mucoperiosteal reaction and mild mucosal thickening. The remainder of the sinuses are pneumatized without significant mucosal thickening. There is mild right basal septal deviation. IMPRESSION: 1. Chronic maxillary sinus disease with postoperative changes of the right maxillary sinus. Reviewed, dictated and finalized at location O. AN OFFICER IMPRESSION: 1. Chronic maxillary sinus disease with postoperative changes of the right maxi llary sinus.
== END 2025-07-01 08:14 | disposition home or self-care (01) ==
LOC: MICIMG 08:15
PROVIDERS: PCP Family Medicine Adolescent Medicine; Visit Provider Otolaryngology
DX: J32.9 Chronic sinusitis, unspecified (principal); J34.89 Other specified disorders of nose and nasal sinuses
CPT/HCPCS: 70486